=== PATIENT | male | born 1975 | race American Indian/Alaskan Native ===

== ENCOUNTER 2024-12-31 13:45 | Emergency (ER) | payer OTHER ==
[~2024-12-31] VITALS: Ht 175.3 cm; Wt 80.0 kg
--- OUTSIDE RECORDS SUMMARY | 2024-12-31 14:00 | XMS ---
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 Antonio has no Care Guidelines for this patient. Irwin VISIT COUNT (12 MO.) 2 [facility] [place] H. TOTAL 2 NOTE: Visits indicate total known visits. ED/C VISIT TRACKING (12 MO.) 12/31/2024 13:[address] [facility] [place] TYPE: Emergency COMPLAINT: - RT HAND INJURY 12/14/2024 16:[address] [facility] [place] TYPE: Emergency COMPLAINT: - RT WRIST, ELBOW INJURY INPATIENT VISIT TRACKING (12 MO.) No inpatient visits to display in this time frame [email or web address]
[2024-12-31] MEDS ORDERED: DIPHTH,PERTUSS(ACELL),TET VAC 0.5 ML SYRINGE IM ONE (14:45)
[2024-12-31] MEDS ORDERED: CIPRO500 MG PO (15:23)
[2024-12-31 15:52] VITALS: BP 128/92
== END 2024-12-31 15:53 | disposition home or self-care (01) ==
LOC: ED 13:45
DX: S61.431A Puncture wound without foreign body of right hand, initial encounter (principal); W45.0XXA Nail entering through skin, initial encounter; M25.521 Pain in right elbow; W13.2XXA Fall from, out of or through roof, initial encounter; Y92.828 Other wilderness area as the place of occurrence of the external cause; L40.9 Psoriasis, unspecified; Z23 Encounter for immunization; Z88.8 Allergy status to other drugs, medicaments and biological substances
CPT/HCPCS: 73080; 73130; 90471; 90715; 99283-25